=== PATIENT | female | born 2000 | race American Indian/Alaskan Native ===

== ENCOUNTER 2019-07-13 19:23 | Emergency (ER) | payer OTHER ==
[2019-07-13 19:31] VITALS: BP 105/43
--- NOTE | 2019-07-13 20:00 | Emergency Department Report ---
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 left breast exam: normal right breast exam: 0.5 cm lump present at the 5 oclock position, freely movable, no nipple retraction, no nipple drainage, no skin changes, no increased warmth, no induration, no fluctuance, no erythema No clinical signs of mastitis or abscess Very small freely movable lump could be related to fibrocystic breast versus fibroadenoma will refer patient to an WELD ENGINEER for further evaluation pt has a non medical emergency at this time, medical screening examination performed, pt referred to the appropriate resources advised pt please see an WELD ENGINEER in the next 2-3 days. return to the emergency room for any new or worsening symptoms. - Exam Vital Signs: Vital Signs 07/13/19 19:30 Temperature 98.7 F Pulse Rate 72 Respiratory 16 Rate Blood Pressure 105/43 O2 Sat by Pulse 100 Oximetry MSE screening note: Focused history and physical exam performed. ED Disposition for MSE Clinical Impression: Lump of right breast Disposition: Z- MED SCREENING EXAM-LEFT Is pt being admited?: No Does the pt Need Aspirin: No Condition: Stable Additional Instructions: please see an WELD ENGINEER in the next 2-3 days. return to the emergency room for any new or worsening symptoms. Referrals: [facility] [Provider Group] - 2-3 Days [facility] [Provider Group] - 2-3 Days [facility] [Provider Group] - 2-3 Days [facility] [Outside] - 2-3 Days [facility] [Outside] - 2-3 Days Time of Disposition: 20:00 Print Language: [place]
== END 2019-07-13 20:48 | disposition left against medical advice (07) ==
LOC: ED 19:23
DX: N63.10 Unspecified lump in the right breast, unspecified quadrant (principal)
CPT/HCPCS: 99282